=== PATIENT | male | born 1990 | race Two or more races ===

== ENCOUNTER 2017-09-22 18:28 | Emergency (ER) | payer OTHER, SELFPAY ==
[~2017-09-22] VITALS: Ht 175.3 cm; Wt 75.0 kg
[2017-09-22] MEDS ORDERED: KETOROLAC 30 MG/1 ML IVPush ONE (19:00)
[2017-09-22] MEDS ORDERED: PLEASE ENTER ALLERGIES MC SCH (19:00)
[2017-09-22 19:04] LABS: BASOPHILS # (AUTO) 0.01 x10^3/uL (0-0.1); BASOPHILS % (AUTO) 0 % (0-1); EOSINOPHILS # (AUTO) 0.02 x10^3/uL (0-0.4); EOSINOPHILS % (AUTO) 0 % (1-7); LYMPHOCYTES # (AUTO) 1.05 x10^3/uL (1-3.4); LYMPHOCYTES % (AUTO) 12 % (22-44); MD NO; MEAN CORPUSCULAR HEMOGLOBIN 30.1 pg (27.5-34.5); MEAN CORPUSCULAR HGB CONC 33.5 g/dL (33.2-36.2); MEAN CORPUSCULAR VOLUME 89.7 fL (81-97); MEAN PLATELET VOLUME 8.6 fL (7.4-10.4); MONOCYTES # (AUTO) 0.42 x10^3/uL (0.2-0.8); MONOCYTES % (AUTO) 5 % (2-9); NEUTROPHILS # (AUTO) 7.04 x10^3/uL (1.8-6.8); NEUTROPHILS % (AUTO) 82 % (42-75); PLATELET COUNT 229 x10^3/uL (130-400); RED BLOOD COUNT 5.57 x10^6/uL (4.38-5.82); RED CELL DISTRIBUTION WIDTH 12.8 % (9.4-14.8)
[2017-09-22 19:07] LABS: INTERNATIONAL NORMALIZED RATIO 1.07 (0.93-1.1); PROTHROMBIN TIME 11.1 Seconds (9.6-11.5)
[2017-09-22 19:10] LABS: ALANINE AMINOTRANSFERASE 23 U/L (12-78); ALBUMIN 3.8 g/dL (3.4-5.0); ANION GAP 7 mmol/L (5-15); CALCIUM 9.1 mg/dL (8.5-10.1); CHLORIDE 106 mmol/L (98-107)
[2017-09-22 19:15] LABS: ALKALINE PHOSPHATASE 73 U/L (45-117); BILIRUBIN,TOTAL 0.6 mg/dL (0.2-1.0); TOTAL PROTEIN 7.7 g/dL (6.4-8.2); TROPONIN I 0.054 ng/mL (0.000-0.045)
[2017-09-22] MEDS ORDERED: KETOROLAC 30 MG/1 ML ONE (19:18)
[2017-09-22 21:28] VITALS: BP 104/60
[2017-09-22 21:42] LABS: TROPONIN I 0.054 ng/mL (0.000-0.045)
== END 2017-09-22 22:28 | disposition home or self-care (01) ==
LOC: ED 22:22
DX: R07.9 Chest pain, unspecified (principal); R06.00 Dyspnea, unspecified; R11.0 Nausea; Z79.82 Long term (current) use of aspirin
CPT/HCPCS: 36415; 71045; 80053; 84484; 85025; 85610; 85730; 93005; 96374; 99285; J1885

== ENCOUNTER 2018-03-26 23:05 | Emergency (ER) | payer SELFPAY ==
[~2018-03-26] VITALS: Ht 175.3 cm; Wt 81.5 kg
[2018-03-26 23:06] VITALS: BP 120/80
[2018-03-26] MEDS ORDERED: PROPARACAINE OPHTH 0.5%, 15ML ONE (23:20)
[2018-03-26] MEDS ORDERED: PROPARACAINE OPHTH 0.5%, 15ML EACHEYE ONE (23:30)
== END 2018-03-27 00:42 | disposition home or self-care (01) ==
LOC: ED 23:40
DX: S05.01XA Injury of conjunctiva and corneal abrasion without foreign body, right eye, initial encounter (principal); Z87.891 Personal history of nicotine dependence; X31.XXXA Exposure to excessive natural cold, initial encounter; Y93.89 Activity, other specified; Y92.009 Unspecified place in unspecified non-institutional (private) residence as the place of occurrence of the external cause; Y99.8 Other external cause status
CPT/HCPCS: 99283